=== PATIENT | male | born 1975 | race Hispanic/Latino ===

== ENCOUNTER 2021-05-10 13:36 | Emergency (ER) | payer BC ==
[2021-05-10 17:13] LABS: SARS-COV-2 RT PCR NEGATIVE (NEGATIVE)
--- NOTE | 2021-05-10 19:31 | ER ---
Nurse's Notes [facility] Name: Corky Christopher Age: 45 yrs Sex: Male : 1975 Arrival Date: 05/10/2021 Time: 13:42 Bed Waiting Private MD: Diagnosis: Acute sinusitis, unspecified Presentation: 05/10 15:19 Chief complaint: Patient states: headache and congestion, denies cough and fever since [facility] Sunday. Coronavirus screen: Vaccine status: Patient reports being unvaccinated. Client denies travel out of the [place] in the last 14 days. Ebola Screen: Patient negative for fever greater than or equal to 101.5 degrees Fahrenheit, and additional compatible Ebola Virus Disease symptoms Patient denies exposure to infectious person. Patient denies travel to an Ebola-affected area in the 21 days before illness onset. Initial Sepsis Screen: Does the patient meet any 2 criteria? No. Patient's initial sepsis screen is negative. Does the patient have a suspected source of infection? No. Patient's initial sepsis screen is negative. Risk Assessment: Do you want to hurt yourself or someone else? Patient reports no desire to harm self or others. Onset of symptoms was April 2021. 15:19 Method Of Arrival: Ambulatory [facility] 15:19 Acuity: NEETU 3 [facility] Triage Assessment: 15:23 General: Appears in no apparent distress. comfortable, well groomed, well developed, 5 well nourished, Behavior is calm, cooperative, appropriate for age. Pain: Denies pain. Historical: - Allergies: 15:22 No Known Allergies; [facility] - Home Meds: 15:22 None [Active]; [facility] - PMHx: 15:22 None; [facility] - Immunization history:: Adult Immunizations up to date. - Social history:: Smoking status: Patient denies any tobacco usage or history of. Vital Signs: 15:19 BP 120 / 90; Pulse 70; Resp 18; Pulse Ox 100% ; Weight 108.86 kg; Height 6 ft. 3 in. [facility] (190.50 cm); 15:19 Body Mass Index 30.00 (108.86 kg, 190.50 cm) [facility] ED Course: 13:42 Patient arrived in ED. am2 15:22 Triage completed. [facility] 15:24 Viviana Price FNP-C is [facility]. kb 15:24 Guy Wu MD is Attending Physician. kb Administered Medications: No medications were administered Outcome: 19:30 Discharge ordered by . kb 20:34 Patient left the ED. kb Signatures: Viviana Price FNP-C FNP-Ckb Moreno, Amanda am2 Kalli Sofia RN RN [id number]
--- NOTE | 2021-05-10 19:31 | EDPHYS ---
Physician Documentation [facility] Name: Corky Christopher Age: 45 yrs Sex: Male : 1975 Arrival Date: 05/10/2021 Time: 13:42 Bed Waiting Private MD: ED Physician Guy Wu HPI: 05/10 22:14 This 45 yrs old Male presents to ER via Ambulatory with complaints of r/o kb covid. 22:13 Pt reports headache and congestion. States he was exposed to covid and concerned he has kb it. 22:14 The patient or guardian reports headache and congestion. Onset: The symptoms/episode kb began/occurred 4 day(s) ago. Severity of symptoms: At their worst the symptoms were mild, in the emergency department the symptoms are unchanged. Modifying factors: The symptoms are alleviated by nothing, the symptoms are aggravated by nothing. Associated signs and symptoms: The patient has no apparent associated signs or symptoms. The patient has not experienced similar symptoms in the past. The patient has not recently seen a physician. Historical: - Allergies: 15:22 No Known Allergies; 5 - Home Meds: 15:22 None [Active]; 5 - PMHx: 15:22 None; [facility] - Immunization history:: Adult Immunizations up to date. - Social history:: Smoking status: Patient denies any tobacco usage or history of. ROS: 22:13 Constitutional: Negative for fever, chills, and weight loss. kb 22:13 ENT: Positive for sinus congestion. 22:13 Neuro: Positive for headache. 22:13 All other systems are negative. Exam: 22:13 Constitutional: This is a well developed, well nourished patient who is awake, alert, kb and in no acute distress. Head/Face: Normocephalic, atraumatic. ENT: Moist Mucous membranes Cardiovascular: Regular rate and rhythm with a normal S1 and S2. No gallops, murmurs, or rubs. No pulse deficits. Respiratory: Respirations even and unlabored. No increased work of breathing. Talking in full sentences Skin: Warm, dry with normal turgor. Normal color. MS/ Extremity: Pulses equal, no cyanosis. Neurovascular intact. Full, normal range of motion. Neuro: Awake and alert, GCS 15, oriented to person, place, time, and situation. Moves all extremities. Normal gait. Psych: Awake, alert, with orientation to person, place and time. Behavior, mood, and affect are within normal limits. Vital Signs: 15:19 BP 120 / 90; Pulse 70; Resp 18; Pulse Ox 100% ; Weight 108.86 kg; Height 6 ft. 3 in. [facility] (190.50 cm); 15:19 Body Mass Index 30.00 (108.86 kg, 190.50 cm) [facility] MDM: 15:24 Patient medically screened. kb 19:08 ED course: Pt was not in lobby when called to give results. kb 19:30 Data reviewed: vital signs, nurses notes. Data interpreted: Pulse oximetry: on room air kb is 100 %. Interpretation: normal. Counseling: I had a detailed discussion with the patient and/or guardian regarding: the historical points, exam findings, and any diagnostic results supporting the discharge/admit diagnosis, lab results, the need for outpatient follow up, a family practitioner, to return to the emergency department if symptoms worsen or persist or if there are any questions or concerns that arise at home. 05/10 15:59 Order name: COVID-19/FLU A+B (Document "Date of Onset" if Symptomatic); Complete Time: kb 17:16 Administered Medications: No medications were administered Disposition: 05/11 07:28 Co-signature as Attending Physician, Guy Wu MD I agree with the assessment and kdr plan of care. Disposition Summary: 05/10/21 19:30 Discharge Ordered Location: Home kb Condition: Stable kb Diagnosis - Acute sinusitis, unspecified kb Followup: kb - With: Emergency Department - When: As needed - Reason: Worsening of condition Followup: kb - With: Private Physician - When: 2 - 3 days - Reason: Recheck today's complaints, Continuance of care, Re-evaluation by your physician Discharge Instructions: - Discharge Summary Sheet kb - Sinusitis, Adult, [id number] kb Forms: - Medication Reconciliation Form kb - Thank You Letter kb - Antibiotic Education kb - Prescription Opioid Use kb Signatures: Dispatcher [employer] EDMS Viviana Price FNP-C FNP-Ckb Rittger, Kevin, MD MD kdr Rees, Jessica RN RN [facility]
[2021-05-10 20:54] VITALS: BP 120/90; O2SAT 100
== END 2021-05-10 20:34 | disposition home or self-care (01) ==
LOC: ER 13:36
DX: J01.90 Acute sinusitis, unspecified (principal); Z20.822 Contact with and (suspected) exposure to COVID-19
CPT/HCPCS: 0240U; 99281